=== PATIENT | male | born 1990 | race Hispanic/Latino ===

== ENCOUNTER 2020-04-01 14:37 | Outpatient (CLI) | payer OTHER ==
--- NOTE | 2020-04-01 15:44 | CT ---
CT OF THE BRAIN WITHOUT CONTRAST: 04/01/20 INDICATION: History of posttraumatic headache status post fall ten days ago. COMPARISON: None. FINDINGS: No acute infarct, hemorrhage, or hydrocephalus is present. Septum pellucidum and third ventricle are midline. Mastoid air cells are clear. Small mucous retention cysts are seen in the left maxillary sin us. The skull is intact. IMPRESSION: No acute intracranial abnormality. POS: [facility]
== END 2020-04-01 14:38 | disposition home or self-care (01) ==
LOC: BICCT 14:37
PROVIDERS: ATTEND Family Medicine
DX: S16.1XXA Strain of muscle, fascia and tendon at neck level, initial encounter (principal); G44.309 Post-traumatic headache, unspecified, not intractable
CPT/HCPCS: 70450